=== PATIENT | female | born 1965 | race Hispanic/Latino ===

== ENCOUNTER 2024-08-07 22:07 | Emergency (ER) | payer SELFPAY ==
[~2024-08-07] VITALS: Ht 152.4 cm; Wt 63.5 kg
[2024-08-07 22:31] LABS: BASOPHILS # (AUTO) 0.05 K/uL (0.00-0.20); BASOPHILS % (AUTO) 0.5 % (0.0-5.0); EOSINOPHILS # (AUTO) 0.22 K/uL (0.00-0.70); EOSINOPHILS % (AUTO) 2.2 % (0.0-8.0); HEMATOCRIT 43.3 % (36-48); IMMATURE GRANULOCYTE ABSOLUTE 0.03 K/uL (0-1); LYMPHOCYTES # (AUTO) 3.6 K/uL (1.0-4.8); LYMPHOCYTES % (AUTO) 34.9 % (21.0-51.0); MEAN CORPUSCULAR HEMOGLOBIN 28.7 pg (27.0-33.0); MEAN CORPUSCULAR HGB CONC 33.3 g/dL (32.0-36.0); MEAN CORPUSCULAR VOLUME 86.3 fL (79-99); MONOCYTES # (AUTO) 0.8 K/uL (0.1-1.0); MONOCYTES % (AUTO) 8.1 % (3.0-13.0); NEUTROPHILS # (AUTO) 5.5 K/uL (1.8-7.7); PLATELET COUNT (AUTO) 231 K/uL (130-400); RED BLOOD CELL COUNT(AUTO) 5.02 MIL/uL (4.00-5.50); RED CELL DISTRIBUTION WIDTH 12.5 % (11.0-15.5); WHITE BLOOD COUNT (AUTO) 10.2 K/uL (4.8-10.8)
--- NOTE | 2024-08-07 22:32 | NUR ---
CALLED AND SPOKE WITH TATY IN LAB ABOUT TROP ORDER ENTERED AT 6539, ORDER SHOWS " [place]O". PER LAB NO ORDER SHOWING BUT PER TATY, SCANNED AND RUNNING TO REFLECT THIS TIME.
[2024-08-07 22:35] LABS: CREATININE 0.5 mg/dL (0.5-1.0); POTASSIUM 3.9 mmol/L (3.5-5.1)
[2024-08-07 23:24] LABS: APPEARANCE,URINE CLEAR (CLEAR); BILIRUBIN,URINE NEGATIVE (NEGATIVE); COLOR,URINE COLORLESS (YELLOW); GLUCOSE, URINE (UA) NEGATIVE (NEGATIVE); KETONES,URINE 10 mg/dL (NEGATIVE); LEUKOCYTE ESTERASE ,URINE NEGATIVE Leu/uL (NEGATIVE); NITRATE,URINE NEGATIVE (NEGATIVE); OCCULT BLOOD,URINE NEGATIVE (NEGATIVE); PROTEIN,URINE NEGATIVE (NEGATIVE); UROBILINOGEN,URINE 0.2 mg/dL (0.2-1.0)
[2024-08-07 23:26] LABS: ADD UA MICROSCOPIC YES
[2024-08-07 23:29] LABS: MUCUS,URINE RARE LPF (None Seen); RBC,URINE 0-1 /HPF (0-1); SQUAMOUS EPITHELIAL CELL,UR RARE /HPF (0-2); WBC,URINE 0-1 /HPF (0-1)
--- NOTE | 2024-08-08 00:32 | ERN ---
General Chief Complaint: Hypoglycemia Stated Complaint: LOW BLOOD SUGAR Time Seen by MD: 22:11 Time Seen by Midlevel: 22:11 Source: patient History of Present Illness Initial Comments Patient is a 58-year-old female with a past medical history of type 2 diabetes presenting to the emergency department after she found her sugar at home being in the 50s. Patient states she had gone out to eat at a restaurant and was not sure if she had taken her glipizide earlier in the day so she decided to take another pill. She states she went back home and reports feeling slightly dizzy and confused so she checked her sugar and it was in the 50s. She immediately started to eat candy along with juice and called EMS for further evaluation. On arrival patient states she feels significantly improved. Sugar on arrival was in the 120s. The only medication she takes his losartan and glipizide. Allergies: Coded Allergies: No Known Allergies (Unverified Allergy, Unknown, 08/07/24) Past Medical History Past Medical History: Diabetes-Type I Past Surgical History: Other, Surgical History Other: LEFT BREAST BIOPSY ROS Dictation CONSTITUTIONAL: Negative except for HPI HEAD/FACE: Negative except for HPI EENT: Negative except for HPI RESPIRATORY: Negative except for HPI GASTROINTESTINAL/ABDOMINAL: Negative except for HPI GENITOURINARY: Negative except for HPI MUSCULOSKELETAL: Negative except for HPI INTEGUMENTARY: Negative except for HPI NEUROLOGICAL/PSYCH: Negative except for HPI HEMATOLOGIC/LYMPHATIC: Negative except for HPI All Systems Negative, Except as noted above. 13 point review of systems assessed and all negative except for above. Physical Exam Physical Exam Dictation Vital Signs reviewed General Appearance: Alert, oriented x 3, no acute distress, well developed, nourished. Head and Face: non-traumatic. Eyes: PERRL, pink conjunctivas, eyelid no trauma, anterior chamber with arcus senilis. Ears: Pinnas intact and no signs of trauma or erythema ear canals clear and no discharge TM no erythema Nose: No discharge, no bleeding. Oropharynx: Mouth normal, tongue pink, pharynx clear,no erythema, tonsils no exudates, no abscesses noted, mucous membrane moist Neck: Supple, non-tender, no thyromegaly, no masses, no JVD, no bruits Breast:Deferred Chest:No tenderness, no crepitus, no paradoxical movement, no retractions Lungs:Clear, well-ventilated, symmetric, no rales, no wheezing, no rhonchi, no stridor, good breath sounds bilaterally Heart: Regular rate, regular rhythm, no murmur, no gallops Vascular: no peripheral edema, Abdomen: Soft, positive bowel sounds, nondistended, no guarding, nontender, no rebound, no masses no hepatomegaly, no splenomegaly, no Kat's sign, no hernias. Rectal: Deferred Genital: Deferred Neurological: Normal speech, motor function intact, sensory function intact Musculoskeletal: Neck nontender, full range of motion, back nontender, full range of motion, Extremities: nontender, full range of motion Skin: Color pink, dry, no turgor, no rash, no lacerations, no abrasions, no contusions. Lymphatic: Deferred Results Laboratory and Microbiology Lab and Micro Result Laboratory Tests Test 08/07/24 22:10 08/07/24 22:19 08/07/24 22:21 08/07/24 23:07 Whole Blood Glucose 125 MG/DL (70-110) H 138 MG/DL (70-110) H White Blood Count 10.2 K/uL (4.8-10.8) Red Blood Count 5.02 MIL/uL (4.00-5.50) Hemoglobin 14.4 g/dL (12.0-16.0) Hematocrit 43.3 % (36-48) Mean Corpuscular Volume 86.3 fL (79-99) Mean Corpuscular Hemoglobin 28.7 pg (27.0-33.0) Mean Corpuscular Hemoglobin Concent 33.3 g/dL (32.0-36.0) Red Cell Distribution Width 12.5 % (11.0-15.5) Platelet Count 231 K/uL (130-400) Mean Platelet Volume 11.2 fL (7.5-10.5) H Immature Granulocyte % (Auto) 0.3 % (0-1) Neutrophils (%) (Auto) 54.0 % (40.0-77.0) Lymphocytes (%) (Auto) 34.9 % (21.0-51.0) Monocytes (%) (Auto) 8.1 % (3.0-13.0) Eosinophils (%) (Auto) 2.2 % (0.0-8.0) Basophils (%) (Auto) 0.5 % (0.0-5.0) Neutrophils # (Auto) 5.5 K/uL (1.8-7.7) Lymphocytes # (Auto) 3.6 K/uL (1.0-4.8) Monocytes # (Auto) 0.8 K/uL (0.1-1.0) Eosinophils # (Auto) 0.22 K/uL (0.00-0.70) Basophils # (Auto) 0.05 K/uL (0.00-0.20) Absolute Immature Granulocyte (auto 0.03 K/uL (0-1) Nucleated Red Blood Cells 0.0 % (0.0-0.19) Sodium Level 145 mmol/L (136-145) Potassium Level 3.9 mmol/L (3.5-5.1) Chloride Level 103 mmol/L (101-111) Carbon Dioxide Level 29 mmol/L (21-32) Blood Urea Nitrogen 14 mg/dL (7-18) Creatinine 0.5 mg/dL (0.5-1.0) Glomerular Filtration Rate Calc 108 mL/min (>90) Random Glucose 135 mg/dL (70-105) H Total Calcium 9.4 mg/dL (8.5-10.1) Troponin I High Sensitivity 5 ng/L (4-50) Urine Color COLORLESS (YELLOW) Urine Appearance CLEAR (CLEAR) Urine pH 5.0 (5.0-8.0) Urine Specific [place] 1.007 (1.001-1.031) Urine Protein NEGATIVE mg/dL (NEGATIVE) Urine Glucose (UA) NEGATIVE mg/dL (NEGATIVE) Urine Ketones 10 mg/dL (NEGATIVE) H Urine Occult Blood NEGATIVE (NEGATIVE) Urine Nitrate NEGATIVE (NEGATIVE) Urine Bilirubin NEGATIVE mg/dL (NEGATIVE) Urine Urobilinogen 0.2 mg/dL (0.2-1.0) Urine Leukocyte Esterase NEGATIVE [place]/uL Urine RBC 0-1 /HPF (0-1) Urine WBC 0-1 /HPF (0-1) Urine Squamous Epithelial Cells RARE /HPF (0-2) Urine Bacteria None /HPF (None Seen) Test 08/07/24 23:28 Whole Blood Glucose 205 MG/DL (70-110) H Labs Reviewed?: Yes MDM MDM: Patient is a 58-year-old female with a past medical history of type 2 diabetes presenting to the emergency department after she found her sugar at home being in the 50s. Patient states she had gone out to eat at a restaurant and was not sure if she had taken her glipizide earlier in the day so she decided to take another pill. She states she went back home and reports feeling slightly dizzy and confused so she checked her sugar and it was in the 50s. She immediately started to eat candy along with juice and called EMS for further evaluation. On arrival patient states she feels significantly improved. Sugar on arrival was in the 120s. The only medication she takes his losartan and glipizide. On physical examination patient is alert and oriented x4. She has a GCS of 15. Neurological examination is unremarkable. Patient was given oral juice in the emergency department. She was observed in the ER for over3 hours and has remained stable. Her CBC and chemistries unremarkable. Repeat sugar after3 hours is 200. Patient will be discharged home with close return precautions. is at bedside and he was advised to continue to monitor patient over the next 24-48 hours. Differential diagnosis: Hypoglycemia, medication overdose, wellness examination There are no social concerns with this patient. Prescription drug management Prescriptions will include: None Medical management and examination interpretation discussions were had by me with other qualified healthcare professionals as indicated for the patient's care. ED Course Orders Procedure Category Date Status Time Cbc With Differential LAB 08/07/24 Complete 22:11 Basic Metabolic Panel LAB 08/07/24 Complete 22:11 Urinalysis Profile LAB 08/07/24 Complete 22:11 Bedside Glucose CPOE 08/07/24 Transmitted Fingerstick 22:11 12 Lead Ekg Tracing- EKG 08/07/24 Logged Technical 22:16 Troponin I High LAB 08/07/24 Complete Sensitivity 22:19 Vital Signs Date Time Temp Pulse Resp B/P (MAP) Pulse Ox O2 Delivery O2 Flow Rate FiO2 08/08/24 00:45 97.9 92 18 116/62 99 Room Air* 0 08/08/24 00:22 97.5 99 18 119/56 98 Room Air* 0 08/07/24 22:33 96.8 109 18 150/78 97 Room Air* 0 08/07/24 22:09 96.1 118 20 178/83 99 Room Air DX & DISP Disposition: Discharge Departure Impression: Primary Impression: Hypoglycemia Condition: Stable Additional Instructions: Your blood work today is stable. Your sugar appears to be trending upwards. Last sugar taken in the emergency department is 204. Please continue to monitor your sugars over the next 24-48 hours. If you have another episode of low blood sugar please report to the ER for further evaluation. Follow up with your primary care doctor in 2-3 days for repeat evaluation. Return to the ER for any new or worsening symptoms Referrals: SELF,REFERRAL Time of Disposition: 00:31 I have reviewed the case, and I agree with, Diagnosis and Plan I performed the substantive portion of the visit. I have reviewed and personally made and approve the management plan that is documented in the note by myself or the BREANNA. I acknowledge for responsibility for the patient's management plan. DENIA ALEXANDER Aug 08, 2024 00:32
[2024-08-08 00:45] VITALS: BP 116/62; PULSE 92; RESP 18; TEMP 97.9; O2SAT 99
--- NOTE | 2024-08-08 17:23 | EKG ---
[facility] Test Date: 2024-08-07 Test Time: 22:22:38 Pat Name: DEBBIE BOLAÑOS Department: ED Room: Gender: F [employer] Rep: [id number] : 1965 Requested By: SAUL BLACKWOOD Order Number: [id number] Reading MD: Karthikeyan Novoa Measurements Intervals [place] Rate: 102 P: 45 MI: 145 QRS: 17 QRSD: 85 T: 70 QT: 353 QTc: 459 Interpretive Statements Sinus tachycardia Ventricular trigeminy No previous ECG available for comparison Electronically Signed On 08-08-2024 17:44:57 [employer] by Karthikeyan Novoa Please click the below link to view image of tracing.
== END 2024-08-08 00:49 | disposition home or self-care (01) ==
LOC: EDH 22:07
DX: E10.649 Type 1 diabetes mellitus with hypoglycemia without coma (principal)
CPT/HCPCS: 36415; 80048; 81001; 82948; 84484; 85025; 93005; 99284